=== PATIENT | female | born 1945 | race Caucasian/White ===

== ENCOUNTER 2022-02-18 16:30 | Emergency (ER) | payer MEDICARE | END 2022-02-18 17:43 | disposition home or self-care (01) | LOC: NAV ERS 16:30 | DX: S82.434A Nondisplaced oblique fracture of shaft of right fibula, initial encounter for closed fracture (principal); I10 Essential (primary) hypertension; Z79.899 Other long term (current) drug therapy; W10.9XXA Fall (on) (from) unspecified stairs and steps, initial encounter ==

== ENCOUNTER 2023-02-08 17:27 | Emergency (ER) | payer MEDICARE ==
[2023-02-08] MEDS ORDERED: Ketorolac Tromethamine 30 MG/ML VIAL ONE (18:29)
== END 2023-02-08 18:41 | disposition home or self-care (01) ==
LOC: NAV ERS 17:27
DX: S00.93XA Contusion of unspecified part of head, initial encounter (principal); S13.8XXA Sprain of joints and ligaments of other parts of neck, initial encounter; E78.00 Pure hypercholesterolemia, unspecified; I10 Essential (primary) hypertension; Z79.899 Other long term (current) drug therapy; W01.198A Fall on same level from slipping, tripping and stumbling with subsequent striking against other object, initial encounter
CPT/HCPCS: 70450; 72125; 96372; J1885

== ENCOUNTER 2023-08-27 07:21 | Inpatient (IN) | payer MEDICARE ==
[2023-08-27] MEDS ORDERED: Senokot S 8.6-50 MG TAB PO PRN (14:33)
[2023-08-27] MEDS ORDERED: Bisacodyl 5 MG TAB PO PRN (14:33)
[2023-08-27] MEDS ORDERED: HumaLOG 300 UNITS/3 ML VIAL SC PRN (14:36)
[2023-08-27] MEDS ORDERED: Dextrose 50% Abboject 50 ML SYRINGE SLOW IVP PRN (14:36)
[2023-08-27] MEDS ORDERED: Glucagon 1 MG/ML KIT IM PRN (14:36)
[2023-08-27] MEDS: Famotidine 20 MG TAB PO SCH (21:34)
[2023-08-27] MEDS: Enoxaparin 30 MG (0.3 mL) SYRINGE SC SCH (21:34)
[2023-08-27] MEDS: Metoprolol Tartrate 25 MG TAB PO SCH (21:34)
[2023-08-27] MEDS: Atorvastatin Calcium 20 MG TAB PO SCH (21:34)
[2023-08-27] MEDS: Acetaminophen 500 MG TAB PO PRN (21:41)
[2023-08-27] MEDS: oxyCODONE 5 MG TAB PO PRN (23:12)
[2023-08-28] MEDS: Calcium Carbonate 600 MG + Vit D TAB PO SCH (03:01)
[2023-08-28 05:49] LABS: #Basophils 0.1 thou/uL (0.0-0.2); #Eosinphils 0.4 thou/uL (0.0-0.7); #Lymphocytes 3.3 thou/uL (1.20-3.40); #Monocytes 0.8 thou/uL (0.11-0.59); #Neutrophils 6.2 thou/uL (1.40-6.50); %Basophils 1.2 % (0.0-1.0); %Eosinophils 3.8 % (0.0-10.0); %Lymphocytes 30.4 % (21.0-51.0); %Monocytes 7.3 % (0.0-10.0); %Neutrophils 57.4 % (42.0-75.0); Hematocrit 26.9 % (36.0-47.0); Hemoglobin 8.7 g/dL (12.0-16.0); Mean Corpuscular HGB CONC 32.3 g/dL (32.0-36.0); Mean Corpuscular Hemoglobin 29.8 pg (27.0-31.0); Mean Corpuscular Volume 92.2 fl (78.0-98.0); Mean Platelet Volume 7.9 fL (7.4-10.4); Platelet Count 190 10x3/uL (130-400); RBC Distribution Width 13.8 % (11.5-14.5); Red Blood Cell (RBC) Count 2.91 mill/uL (4.20-5.40); White Blood Cell (WBC) Count 10.8 10x3/uL (4.8-10.8)
[2023-08-28 06:09] LABS: ALT (SGPT) 10 U/L (8-55); AST (SGOT) 11 U/L (5-34); Albumin 2.7 g/dL (3.4-4.8); Alkaline Phosphatase 75 U/L (40-110); Anion Gap 14 mmol/L (10-20); BUN (Urea Nitrogen) 21 mg/dL (9.8-20.1); Bilirubin, Total 0.6 mg/dL (0.2-1.2); Calc. Creatinine Clearance 68 mL/min (70-130); Carbon Dioxide 22 mmol/L (23-31); Chloride 105 mmol/L (98-107); Estimated GFR 69; Globulin 2.4 g/dL (2.4-3.5); Glucose 165 mg/dL (83-110); Potassium 4.6 mmol/L (3.5-5.1); Protein, Total 5.1 g/dL (5.8-8.1); Sodium 136 mmol/L (136-145)
[2023-08-28] MEDS: metFORMIN 500 MG TAB PO SCH (08:45)
[2023-08-28] MEDS: Alogliptin 6.25 MG TAB PO SCH (08:47)
[2023-08-28] MEDS: Aspirin Chewable 81 MG TAB PO SCH (08:48)
[2023-08-28] MEDS: Polyethylene Glycol 3350 17 GM Packet PO SCH (08:48)
[2023-08-28] MEDS: Isosorbide Mononitrate 60 MG ER.TAB PO SCH (08:48)
[2023-08-28] MEDS: HumaLOG 300 UNITS/3 ML VIAL SC PRN (13:00)
[2023-08-30 05:58] LABS: #Basophils 0.1 thou/uL (0.0-0.2); #Eosinphils 0.3 thou/uL (0.0-0.7); #Lymphocytes 2.9 thou/uL (1.20-3.40); #Monocytes 0.8 thou/uL (0.11-0.59); #Neutrophils 7.9 thou/uL (1.40-6.50); %Basophils 1.1 % (0.0-1.0); %Eosinophils 2.6 % (0.0-10.0); %Lymphocytes 24.3 % (21.0-51.0); %Monocytes 6.4 % (0.0-10.0); %Neutrophils 65.6 % (42.0-75.0); Hematocrit 30.3 % (36.0-47.0); Hemoglobin 9.5 g/dL (12.0-16.0); Mean Corpuscular HGB CONC 31.4 g/dL (32.0-36.0); Mean Corpuscular Hemoglobin 29.5 pg (27.0-31.0); Mean Corpuscular Volume 94.1 fl (78.0-98.0); Mean Platelet Volume 7.5 fL (7.4-10.4); Platelet Count 236 10x3/uL (130-400); RBC Distribution Width 14.5 % (11.5-14.5); Red Blood Cell (RBC) Count 3.22 mill/uL (4.20-5.40); White Blood Cell (WBC) Count 12.1 10x3/uL (4.8-10.8)
[2023-08-30 06:02] LABS: Anion Gap 14 mmol/L (10-20); BUN (Urea Nitrogen) 30 mg/dL (9.8-20.1); Calc. Creatinine Clearance 60 mL/min (70-130); Calcium 9.3 mg/dL (7.8-10.44); Carbon Dioxide 23 mmol/L (23-31); Chloride 101 mmol/L (98-107); Estimated GFR 59; Glucose 134 mg/dL (83-110); Potassium 4.8 mmol/L (3.5-5.1); Sodium 133 mmol/L (136-145)
[2023-08-31] MEDS ORDERED: Ibuprofen 200 MG TAB PO PRN (10:55)
[2023-08-31] MEDS ORDERED: Lisinopril 10 MG TAB PO SCH (14:45)
[2023-08-31] MEDS: Lisinopril 20 MG TAB PO SCH (15:40)
[2023-08-31] MEDS: Hydrochlorothiazide 25 MG TAB PO SCH (15:44)
[2023-09-01] MEDS: Hydrochlorothiazide 25 MG TAB PO SCH (08:06)
[2023-09-01] MEDS: Lisinopril 20 MG TAB PO SCH (08:07)
[2023-09-01] MEDS ORDERED: Non-Formulary Item 1 EACH (Lisinopril/Hydrochlorothiazide [Lisinopril-Hctz 20-12.5 Mg Tab PO SCH (09:00)
[2023-09-01] MEDS ORDERED: Senokot S 8.6-50 MG TAB PO PRN (13:20)
[2023-09-04 06:08] LABS: #Basophils 0.2 thou/uL (0.0-0.2); #Eosinphils 0.2 thou/uL (0.0-0.7); #Lymphocytes 3.5 thou/uL (1.20-3.40); #Monocytes 0.5 thou/uL (0.11-0.59); #Neutrophils 5.9 thou/uL (1.40-6.50); %Basophils 1.8 % (0.0-1.0); %Eosinophils 2.3 % (0.0-10.0); %Lymphocytes 34.3 % (21.0-51.0); %Monocytes 4.7 % (0.0-10.0); %Neutrophils 56.9 % (42.0-75.0); Hematocrit 28.1 % (36.0-47.0); Hemoglobin 8.7 g/dL (12.0-16.0); Mean Corpuscular HGB CONC 30.8 g/dL (32.0-36.0); Mean Corpuscular Hemoglobin 29.2 pg (27.0-31.0); Mean Corpuscular Volume 94.6 fl (78.0-98.0); Mean Platelet Volume 7.2 fL (7.4-10.4); Platelet Count 214 10x3/uL (130-400); RBC Distribution Width 14.7 % (11.5-14.5); Red Blood Cell (RBC) Count 2.97 mill/uL (4.20-5.40); White Blood Cell (WBC) Count 10.3 10x3/uL (4.8-10.8)
[2023-09-04 06:18] LABS: ALT (SGPT) 13 U/L (8-55); AST (SGOT) 15 U/L (5-34); Albumin 2.9 g/dL (3.4-4.8); Alkaline Phosphatase 105 U/L (40-110); Anion Gap 13 mmol/L (10-20); BUN (Urea Nitrogen) 25 mg/dL (9.8-20.1); Bilirubin, Total 0.5 mg/dL (0.2-1.2); Calc. Creatinine Clearance 61 mL/min (70-130); Carbon Dioxide 22 mmol/L (23-31); Chloride 103 mmol/L (98-107); Estimated GFR 61; Globulin 2.6 g/dL (2.4-3.5); Glucose 113 mg/dL (83-110); Potassium 4.2 mmol/L (3.5-5.1); Protein, Total 5.5 g/dL (5.8-8.1); Sodium 134 mmol/L (136-145)
[2023-09-04] MEDS: Polyethylene Glycol 3350 17 GM Packet PO SCH (08:53)
[2023-09-04 23:29] LABS: Iron 57 ug/dL (50-170); Iron Binding Capacity, Total 271 mcg/dL (265-497)
[2023-09-05] MEDS: Metoprolol Tartrate 25 MG TAB PO SCH (08:48)
[2023-09-06] MEDS: Ondansetron ODT 4 MG TAB SL PRN (11:30)
[2023-09-07] MEDS: Loratadine 10 MG TAB PO SCH (09:27)
[2023-09-08 06:04] VITALS: BMI 33.4
[2023-09-09 08:39] LABS: #Basophils 0.1 thou/uL (0.0-0.2); #Eosinphils 0.2 thou/uL (0.0-0.7); #Lymphocytes 1.6 thou/uL (1.20-3.40); #Monocytes 0.5 thou/uL (0.11-0.59); #Neutrophils 5.6 thou/uL (1.40-6.50); %Basophils 1.1 % (0.0-1.0); %Eosinophils 2.9 % (0.0-10.0); %Lymphocytes 20.2 % (21.0-51.0); %Neutrophils 69.8 % (42.0-75.0); Hematocrit 33.4 % (36.0-47.0); Mean Corpuscular Hemoglobin 29.1 pg (27.0-31.0); Mean Corpuscular Volume 96.8 fl (78.0-98.0); Mean Platelet Volume 8.2 fL (7.4-10.4); Platelet Count 206 10x3/uL (130-400); RBC Distribution Width 14.7 % (11.5-14.5); Red Blood Cell (RBC) Count 3.45 mill/uL (4.20-5.40)
[2023-09-09 08:40] LABS: ALT (SGPT) 14 U/L (8-55); AST (SGOT) 14 U/L (5-34); Albumin 3.1 g/dL (3.4-4.8); Alkaline Phosphatase 171 U/L (40-110); Anion Gap 13 mmol/L (10-20); BUN (Urea Nitrogen) 18 mg/dL (9.8-20.1); Bilirubin, Total 0.4 mg/dL (0.2-1.2); Calc. Creatinine Clearance 69 mL/min (70-130); Carbon Dioxide 21 mmol/L (23-31); Chloride 105 mmol/L (98-107); Estimated GFR 69; Globulin 2.8 g/dL (2.4-3.5); Glucose 150 mg/dL (83-110); Potassium 4.3 mmol/L (3.5-5.1); Protein, Total 5.9 g/dL (5.8-8.1); Sodium 135 mmol/L (136-145)
[2023-09-11 19:52] VITALS: BMI 33.4
[2023-09-12 08:56] VITALS: BP 144/76; TEMP 98.1
== END 2023-09-12 12:05 | disposition home health service (06) | DRG 560 ==
LOC: NAV ACUTE 19:33
PROVIDERS: ADMIT Family Medicine; ATTEND Family Medicine
DX: M84.451D Pathological fracture, right femur, subsequent encounter for fracture with routine healing (principal); D62 Acute posthemorrhagic anemia; M19.90 Unspecified osteoarthritis, unspecified site; J30.2 Other seasonal allergic rhinitis; D63.1 Anemia in chronic kidney disease; C50.919 Malignant neoplasm of unspecified site of unspecified female breast; N18.2 Chronic kidney disease, stage 2 (mild); I12.9 Hypertensive chronic kidney disease with stage 1 through stage 4 chronic kidney disease, or unspecified chronic kidney disease; E11.22 Type 2 diabetes mellitus with diabetic chronic kidney disease; I25.2 Old myocardial infarction; Z98.890 Other specified postprocedural states; R53.81 Other malaise
CPT/HCPCS: 36415; 36416; 80048; 80053; 82728; 83036; 83540; 83550; 85025; J1650; J1815; Q0162